=== PATIENT | female | born 1985 | race Caucasian/White ===

== ENCOUNTER 2017-02-06 14:38 | Observation (INO) | payer OTHER ==
[~2017-02-06 14:38] MED LIST: COLACE100 MG PO; FA-80.8 MG PO; IBUPROFEN800 MG PO; IMITREX25 M1 PO; LEVOTHYROXINE112 MCG PO; LEVOTHYROXINE125 MC1 PO; LEVOTHYROXINE150 MCG; LEVOTHYROXINE150 MCG PO; METRONIDAZOLE500 M1 PO; MOTRIN800 MG PO; NORCO 5/3251 TA1; NORCO 5/3251 TA1 NG; NORCO 5/3251 TAB PO; PRENATAL1 EACH; PRENATAL1 EACH PO; ZOFRAN4 M1 PO
[2017-02-06] MEDS ORDERED: PRENA1 CHEW TA1.4 M1 PO (15:19)
[2017-02-06] MEDS ORDERED: TYLENOL COLD H1 EAC1 PO (15:20)
[2017-02-06 15:35] LABS: BASO % 0.1 % (0-2); EOS % 0.6 % (0-7); HCT-HEMATOCRIT 31.7 % (34.0-49.0); HGB-HEMOGLOBIN 10.5 gm/dl (12.0-15.5); IMMATURE GRANULOCYTES ABSOLUTE 0.02 tho/cmm (0-0.03); IMMATURE GRANULOCYTES PERCENT 0.3 % (0-0.3); LYMPH % 22.5 % (20-45); LYMPH ABSOLUTE COUNT 1.6 tho/cmm (0.8-4.5); MCH (MEAN CORPUSCULAR HGB) 28.7 pg (28.0-32.0); MCHC MEAN CORPUSCULAR HGB CONC 33.1 % (32.0-36.0); MCV (MEAN CELL VOLUME) 86.6 fl (82.0-96.0); MEAN PLATELET VOLUME 8.9 cmc (9.4-12.4); MONO % 9.8 % (0-12); MONOCYTE ABSOLUTE COUNT 0.7 tho/cmm (0.0-1.2); NEUTROPHIL ABSOLUTE COUNT 4.8 tho/cmm (1.6-8.0); NEUTROPHIL-AUTOMATED 4.8 tho/cmm (1.6-8.0); NEUTROPHILS % 66.7 % (40-80); PLATELET COUNT 261 tho/cmm (150-450); RED BLOOD COUNT 3.66 mil/cmm (4.00-5.20); RED CELL DISTRIBUTION WIDTH 13.8 % (12.4-16.4); WHITE BLOOD COUNT 7.2 tho/cmm (4.0-10.0)
== END 2017-02-06 21:12 ==
LOC: LDR 14:38
PROVIDERS: Obstetrics & Gynecology; ADMIT Family Medicine
DX: O47.1 False labor at or after 37 completed weeks of gestation (principal); Z3A.39 39 weeks gestation of pregnancy; Z88.1 Allergy status to other antibiotic agents

== ENCOUNTER 2017-02-07 03:41 | Inpatient (IN) | payer OTHER ==
[~2017-02-07 03:41] MED LIST changes: +PRENA1 CHEW TA1.4 M1 PO; +TYLENOL COLD H1 EAC1 PO
[2017-02-07 04:17] LABS: EOSINOPHIL ABSOLUTE COUNT 0.1 tho/cmm (0.0-0.7); HCT-HEMATOCRIT 34.1 % (34.0-49.0); HGB-HEMOGLOBIN 11.1 gm/dl (12.0-15.5); IMMATURE GRANULOCYTES ABSOLUTE 0.02 tho/cmm (0-0.03); IMMATURE GRANULOCYTES PERCENT 0.3 % (0-0.3); LYMPH % 22.8 % (20-45); LYMPH ABSOLUTE COUNT 1.6 tho/cmm (0.8-4.5); MCH (MEAN CORPUSCULAR HGB) 28.4 pg (28.0-32.0); MCHC MEAN CORPUSCULAR HGB CONC 32.6 % (32.0-36.0); MCV (MEAN CELL VOLUME) 87.2 fl (82.0-96.0); MEAN PLATELET VOLUME 9.1 cmc (9.4-12.4); MONO % 10.3 % (0-12); MONOCYTE ABSOLUTE COUNT 0.7 tho/cmm (0.0-1.2); NEUTROPHIL ABSOLUTE COUNT 4.6 tho/cmm (1.6-8.0); NEUTROPHIL-AUTOMATED 4.6 tho/cmm (1.6-8.0); NEUTROPHILS % 65.6 % (40-80); PLATELET COUNT 282 tho/cmm (150-450); RED BLOOD COUNT 3.91 mil/cmm (4.00-5.20)
[2017-02-08 06:16] LABS: BASO % 0.1 % (0-2); EOS % 0.8 % (0-7); EOSINOPHIL ABSOLUTE COUNT 0.1 tho/cmm (0.0-0.7); HCT-HEMATOCRIT 31.5 % (34.0-49.0); HGB-HEMOGLOBIN 10.4 gm/dl (12.0-15.5); IMMATURE GRANULOCYTES ABSOLUTE 0.02 tho/cmm (0-0.03); IMMATURE GRANULOCYTES PERCENT 0.2 % (0-0.3); LYMPH % 21.4 % (20-45); LYMPH ABSOLUTE COUNT 1.8 tho/cmm (0.8-4.5); MCH (MEAN CORPUSCULAR HGB) 28.7 pg (28.0-32.0); MCV (MEAN CELL VOLUME) 86.8 fl (82.0-96.0); MEAN PLATELET VOLUME 8.6 cmc (9.4-12.4); MONO % 7.9 % (0-12); MONOCYTE ABSOLUTE COUNT 0.7 tho/cmm (0.0-1.2); NEUTROPHIL ABSOLUTE COUNT 5.9 tho/cmm (1.6-8.0); NEUTROPHIL-AUTOMATED 5.9 tho/cmm (1.6-8.0); NEUTROPHILS % 69.6 % (40-80); PLATELET COUNT 238 tho/cmm (150-450); RED BLOOD COUNT 3.63 mil/cmm (4.00-5.20); RED CELL DISTRIBUTION WIDTH 14.1 % (12.4-16.4); WHITE BLOOD COUNT 8.4 tho/cmm (4.0-10.0)
[2017-02-08] MEDS ORDERED: IBUPROFEN800 M1 PO (10:12)
== END 2017-02-08 13:45 | DRG 775 ==
LOC: LDR 03:41 → OBGD 12:20
PROVIDERS: Obstetrics & Gynecology; ADMIT Family Medicine
PROC: 0HQ9XZZ Repair Perineum Skin, External Approach (ICD-10-PCS; principal; 2017-02-07)
PROC: 10E0XZZ Delivery of Products of Conception, External Approach (ICD-10-PCS; principal; 2017-02-07)
DX: O69.81X0 Labor and delivery complicated by cord around neck, without compression, not applicable or unspecified (principal); O70.0 First degree perineal laceration during delivery; Z3A.39 39 weeks gestation of pregnancy; Z37.0 Single live birth
CPT/HCPCS: J2370; J2590